=== PATIENT | female | born 1950 | race Caucasian/White ===

== ENCOUNTER 2018-02-21 10:15 | Emergency (ER) | payer BC ==
--- NOTE | 2018-02-21 11:09 | UC ---
Hand/Wrist HPI - HPI Summary HPI Summary: 67 yo female present with RIGHT wrist pain and LEFT big toe pain s/p fall yesterday. She tells me that yesterday she was walking her dog on an uneven ground with many twigs and branches - dog pulled and she fell onto her right side. Injured her right wrist and left big toe. No LOC and was ambulatory directly after fall. Has some bruising today. Says that she is here to make sure nothing is broken. Also complains of post nasal drip and yellow sinus drainage for the last month - she was treated with zpak with no improvement. Denies fever, chills, SOB, chest pain, numbness, or tingling. - History Of Current Complaint Stated Complaint: TOE,WRIST INJURY Time Seen by Provider: 02/21/18 11:09 Hx Obtained From: Patient Onset/Duration: Sudden Onset Severity Initially: Moderate Severity Currently: Mild Pain Intensity: 2 Pain Scale Used: 0-10 Numeric - Allergies/Home Medications Allergies/Adverse Reactions: Allergies Allergy/AdvReac Type Severity Reaction Status Date / Time Penicillins Allergy Rash And Verified 02/21/18 11:25 Itching Home Medications: Home Medications Allopurinol 100 mg 02/21/18 [History] Citalopram TAB* [Celexa TAB*] 20 mg 02/21/18 [History] Lisinopril 40 mg PO 02/21/18 [History] Simvastatin 20 mg PO 02/21/18 [History] amLODIPine TAB* [Norvasc 5 mg TAB*] 02/21/18 [History] PMH/Surg Hx/FS Hx/Imm Hx Endocrine History: Dyslipidemia Cardiovascular History: Hypertension Psychological History: Anxiety, Depression - Surgical History Surgical History: None - Family History Known Family History: Positive: Cardiac Disease, Hypertension - Social History Occupation: Retired Lives: With Family Alcohol Use: Occasionally Substance Use Type: None Smoking Status (MU): Never Smoked Tobacco Review of Systems Constitutional: Negative Skin: Bruising - Arms, wrists, and legs due to fall Respiratory: Negative Cardiovascular: Negative Neurovascular: Negative Musculoskeletal: Other: - Right wrist pain. Left toe pain Neurological: Negative Psychological: Negative All Other Systems Reviewed And Are Negative: Yes Physical Exam - Summary Physical Exam Summary: GENERAL: NAD. WDWN. No pain distress. SKIN: Diffuse 1.0cm-3.0cm patches of ecchymosis on arms and legs from fall. HEENT: Head: AT/NC Eyes: EOM intact. Conjunctiva clear without inflammation or discharge. Ears: Hearing grossly normal. TMs intact, no bulging, erythema, or edema. Nose: Nasal mucosa pink and moist. NTTP maxillary and frontal sinus. Throat: Posterior oropharynx without exudates, erythema, or tonsillar enlargement. Uvula midline. NECK: Supple. Nontender. No lymphadenopathy. CHEST: CTAB. No r/r/w. No accessory muscle use. Breathing comfortably and in no distress. CV: RRR. Without m/r/g. Pulses intact. Brisk cap refill. MSK: RIGHT wrist: NTTP. FROM and 5/5 strength throughout. No edema. Left great toe: FROM. Mild TTP at IP joint space. NEURO: Alert. CN II-XII grossly intact. PSYCH: Age appropriate behavior. Triage Information Reviewed: Yes Vital Signs: Vital Signs: Temp Pulse Resp BP Pulse Ox 98.3 F 85 16 144/80 98 02/21/18 11:17 02/21/18 11:17 02/21/18 11:17 02/21/18 11:17 02/21/18 11:17 Hand/Wrist Course/Dx - Course Course Of Treatment: XR wrist: IMPRESSION: 1. OSTEOPENIA. 2. OSTEOARTHRITIS. 3. NO ACUTE OSSEOUS INJURY. IF SYMPTOMS PERSIST, RECOMMEND REPEAT IMAGING. XR toe: IMPRESSION: 1. QUESTIONABLE NONDISPLACED FRACTURE OF THE HEAD OF THE PROXIMAL PHALANX OF THE FIRST. DIGIT. RECOMMEND CORRELATION WITH SITE OF PAIN. 2. OSTEOPENIA. 3. MILD OSTEOARTHRITIS. Pt declined raven taping or toe splint today. Advised to ambulate as tolerated and take tylenol prn pain. Regarding her sinus symptoms - will try OTC flonase and claritin. - Differential Dx/Diagnosis Provider Diagnoses: Right wrist pain. Left great toe pain Discharge - Sign-Out/Discharge Documenting (check all that apply): Discharge/Admit/Transfer - Discharge Plan Condition: Stable Disposition: HOME Patient Education Materials: Toe Fracture (ED), Contusion in Adults (ED) Referrals: Yolanda Bone MD [Primary Care Provider] - Additional Instructions: If you develop a fever, shortness of breath, chest pain, new or worsening symptoms - please call your PCP or go to the ED. Your blood pressure was high at todays visit. Please see your primary provider within 4 weeks for recheck and re-evaluation. 1) Rest, Ice, and elevate your foot/toe as much as possible 2) Activities as tolerated 3) May take over the counter tylenol as every 6-8 hours as needed for pain - Billing Disposition and Condition Condition: STABLE Disposition: Home
[2018-02-21 11:25] VITALS: BP 144/80
--- NOTE | 2018-02-21 12:28 | RAD ---
HISTORY: Pain. Fall yesterday COMPARISONS: None VIEWS: 3, Frontal, lateral, and oblique views of the right wrist FINDINGS: BONE DENSITY: There is diffuse osteopenia. BONES: There is no displaced fracture. JOINTS: There is advanced osteoarthritis of the first CMC joint. ALIGNMENT: There is no dislocation. SOFT TISSUES: Unremarkable. OTHER FINDINGS: None. IMPRESSION: 1. OSTEOPENIA. 2. OSTEOARTHRITIS. 3. NO ACUTE OSSEOUS INJURY. IF SYMPTOMS PERSIST, RECOMMEND REPEAT IMAGING.
--- NOTE | 2018-02-21 12:29 | RAD ---
HISTORY: Pain. Fall yesterday COMPARISONS: None VIEWS: 3, Frontal, lateral, and oblique views of the first digit of the left foot FINDINGS: BONE DENSITY: There is diffuse osteopenia. BONES: There is a questionable nondisplaced fracture of the head of the proximal phalanx of the first digit. JOINTS: There is mild osteoarthritis of the first MTP and interphalangeal joint. ALIGNMENT: There is no dislocation. SOFT TISSUES: Unremarkable. OTHER FINDINGS: None. IMPRESSION: 1. QUESTIONABLE NONDISPLACED FRACTURE OF THE HEAD OF THE PROXIMAL PHALANX OF THE FIRST DIGIT. RECOMMEND CORRELATION WITH SITE OF PAIN. 2. OSTEOPENIA. 3. MILD OSTEOARTHRITIS.
== END 2018-02-21 12:45 | disposition home or self-care (01) ==
LOC: UCEAST 10:15
DX: M25.531 Pain in right wrist (principal); M79.675 Pain in left toe(s); M85.872 Other specified disorders of bone density and structure, left ankle and foot; M19.072 Primary osteoarthritis, left ankle and foot; M85.831 Other specified disorders of bone density and structure, right forearm; M19.031 Primary osteoarthritis, right wrist; J34.89 Other specified disorders of nose and nasal sinuses; E78.5 Hyperlipidemia, unspecified; I10 Essential (primary) hypertension; F41.9 Anxiety disorder, unspecified; F32.9 Major depressive disorder, single episode, unspecified; Z88.0 Allergy status to penicillin; Z82.49 Family history of ischemic heart disease and other diseases of the circulatory system
CPT/HCPCS: 99201; G0463

== ENCOUNTER 2019-01-02 09:56 | Emergency (ER) | payer BC ==
[2019-01-02 10:52] VITALS: BP 170/88
--- NOTE | 2019-01-02 10:53 | UC ---
Respiratory Complaint HPI - HPI Summary HPI Summary: CHIEF COMPLAINT and HPI: This is a 68-year-old female who comes to the [facility] with a complaint of cough producing brown mucus and tender left maxillary sinus and nasal discharge. This condition began this condition began yesterday and has not improved. She denies fever. Pain is described as mild and going into her teeth on the left. Medications & Allergies Reviewed. Patient is on allopurinol as well as antihypertensive medication. Nurses Note Reviewed. " developed sinus/facial pain yesterday, and woke up with a wet, productive cough today. denies fever " Hypertension status reviewed. Visit History Reviewed. Chronic conditions and problem list reviewed. Information contributory to present complaint: none. - History of Current Complaint Stated Complaint: COUGHGING UP MUCUS Time Seen by Provider: 01/02/19 10:49 Hx Last Menstrual Period: menopause - Allergies/Home Medications Allergies/Adverse Reactions: Allergies Allergy/AdvReac Type Severity Reaction Status Date / Time bee venom protein (honey bee) Allergy Anaphylatic Verified 01/02/19 10:52 Shock Penicillins Allergy Rash And Verified 01/02/19 10:52 Itching Home Medications: Home Medications Fosinopril (NF) [Monopril (NF)] 40 mg PO DAILY 01/02/19 [History Confirmed 01/02] Naproxen Sodium [Aleve] 2 tab PO DAILY PRN 01/02/19 [History Confirmed 01/02/19] Rosuvastatin Calcium 20 mg PO DAILY 01/02/19 [History Confirmed 01/02/19] PMH/Surg Hx/FS Hx/Imm Hx - Additional Past Medical History Additional PMH: PAST MEDICAL HISTORY: gout, hypertension. FAMILY HISTORY: Positive history of: -HYPTERTENSION -CARDIOVASCULAR DISEASE -STROKE -Denies hypertension, heart disease, stroke, diabetes, cancer. SOCIAL HISTORY: Employment: retired teacher. Family Environment: self Habits: NON SMOKER. - Surgical History Surgical History: None Surgery Procedure, Year, and Place: hip replacement 2011 ? - Family History Known Family History: Positive: Cardiac Disease, Hypertension - Social History Alcohol Use: Occasionally Substance Use Type: None Smoking Status (MU): Never Smoked Tobacco Review of Systems All Other Systems Reviewed And Are Negative: Yes Constitutional: Positive: Negative. Negative: Fever Skin: Positive: Negative Eyes: Positive: Drainage - nose ENT: Positive: Sinus Pain/Tenderness - left Respiratory: Positive: Negative, Cough. Negative: Shortness Of Breath Cardiovascular: Positive: Negative. Negative: Palpitations Gastrointestinal: Positive: Negative. Negative: Abdominal Pain Is Patient Immunocompromised?: No Physical Exam - Summary Physical Exam Summary: Appearance: The patient is well-appearing, is in no pain or distress, and is well-nourished. Eyes: Conjunctiva are clear. Pupils are equal and reactive to light and accommodation. Extra ocular muscle movement is intact. ENT: The hearing is grossly normal, the pharynx is normal, and the TMs are normal. There is no muffled or hoarse voice. No stridor. Mild tenderness to palpation, left maxillary sinus. Neck: The neck is supple and there is no lymphadenopathy. Respiratory: The chest is nontender to palpation and without crepitus. The lungs are clear, there are normal breath sounds, and there is no respiratory distress. No wheezes, rales or rhonchi. Cardiovascular: Heart sounds reveal a regular rate and rhythm. There are no clicks, rubs or murmurs. There are no carotid bruits or thrills. Circulation is grossly intact. Abdomen: The abdomen is soft and nontender. There is no organomegaly. Bowel sounds are present and within normal limits. No point tenderness at McBurneys point. Musculoskeletal: Strength is intact. The patient moves all extremities. Neurological: The patient is alert. Motor and sensory are examination grossly intact. Speech is normal. Psychological: The patient displays age appropriate behavior Skin: Negative for rashes. Triage Information Reviewed: Yes Vital Signs Reviewed: Yes Respiratory Course/Dx - Course Course Of Treatment: MEDICAL DECISION MAKING & PLAN: This is a 68-year-old female who comes to the [facility] with a complaint of cough producing brown mucus and tender left maxillary sinus and nasal discharge. This condition began this condition began yesterday and has not improved. She denies fever. Pain is described as mild and going into her teeth on the left. Tender left maxillary sinus. My diagnosis is left sinus congestion, possible infection. Bronchitis, probably viral. In discussing her condition and treatment plan the patient requests an antibiotic. I encouraged her to take the antibiotic and try to deal with this condition. Through various symptomatic treatment. She voiced understanding and will try this. I will give her 5 days of doxycycline, BID. MEDICATIONS REVIEWED: Medications have been included in the original chart and reviewed. HYPERTENSION STATUS REVIEWED. CURRENT HTN TREATMENT: Elevated BP but has current hypertension diagnosis and treatment. Patient maintains compliance with medication. Referred to PCP to evaluate current medication. Patient voices understanding. - Differential Dx/Diagnosis Provider Diagnosis: Sinusitis Discharge - Sign-Out/Discharge Documenting (check all that apply): Patient Departure All imaging exams completed and their final reports reviewed: No Studies - Discharge Plan Condition: Stable Disposition: HOME Prescriptions: DOXYcycline CAP(*) [DOXYcycline 100MG CAP(*)] 100 mg PO BID #10 cap MDD 2 Patient Education Materials: Sinusitis (ED) Referrals: Yolanda Bone MD [Primary Care Provider] - Additional Instructions: WE DISCUSSED: PLEASE SEEK CARE AT THE EMERGENCY DEPARTMENT IF SYMPTOMS WORSEN OR IF NEW SYMPTOMS DEVELOP. FOLLOW UP WITH YOUR PRIMARY CARE PHYSICIAN IF CONDITION CONTINUES BEYOND 3 DAYS WITHOUT IMPROVEMENT. We are open from 7 a.m. to 10 p.m. Call us with any questions or concerns. YOUR DIAGNOSIS IS: Sinus congestion, possible infection; bronchitis, probably viral. YOUR PRESCRIPTION RECOMMENDATION IS: As we discussed, my recommendation is to hold off on any antibiotic. This is probably viral. However, if she should spike a temperature and the pain continues over the next 5 days, you can start the antibiotic. Take one pill twice a day for 5 days. Doxycyline. OTHER INSTRUCTIONS: Hypertension Discharge Instructions: Your blood pressure reading today was 1170/88, indicating HYPERTENSION. Follow- up with your primary care provider within 4 weeks for blood pressure check and appropriate recommendations and treatment, as needed. For pain: Ibuprofen (Motrin and other brand names) 400-600mg PLUS acetaminophen (Tylenol and other brand names) 500mg - 1000mg every 8 hours. Maximum is 3 doses a day. If this dosage is required for more than 5 days, you should re-check with your doctor. The combination of these two over-the- counter medications can be more effective than each one taken alone. Please check with the pharmacist if you have questions about your allergies to these medications. Any illness causing cough, congestion, sore throat or sinus discomfort can be helped by doing the following: STAND UNDER SHOWER STREAM TO LOOSEN SECRETIONS. STAY AWAY FROM ANY SMOKE OR IRRITANTS. WHAT ELSE CAN HELP RELIEVE YOUR SYMPTOMS: TRY TO CLEAR NOSE: AFRIN NASAL SPRAY: 2-3 SPRAYS PER NOSTRIL, TWICE A DAY FOR TWO DAYS ONLY. USEFUL WAYS TO FEEL BETTER WITHOUT MEDICATIONS: STAND UNDER SHOWER STREAM TO LOOSEN SECRETIONS. USE A VAPORIZOR. STAY AWAY FROM ANY SMOKE OR IRRITANTS. USE SALINE NASAL SPRAY TO KEEP FLOW OF MUCOUS FROM NOSTRILS AND SINUSES. CONSIDER USING NETI POT TO HELP WITH ALLERGIES AND CONGESTION IN THE NOSE. USE THIS THREE TIMES A WEEK. YOU CAN GET THIS AT [employer] IN [place] OR VARIOUS DRUGSTORES. DRINK LOTS OF WARM FLUIDS USEFUL HOME REMEDIES: WARM WATER GARGLES, WITH TSP OF SALT PER 8 OUNCES OF WATER, GARGLE FOR A FEW SECONDS AND SPIT OUT; GARGLE AND SPIT OUT; EVERY THREE HOURS. AND/OR: WARM WATER OR TEA, HONEY AND LEMON; 2-3 CUPS A DAY. FOR SORE THROAT: KEEP THROAT MOIST WITH LOZENGES; TEA AND HONEY. USE WARM WATER GARGLES 3-4 TIMES A DAY. FOLLOW UP: RE-CHECK IN 1O DAYS, NEEDED, IF YOU ARE NOT IMPROVING. RETURN HERE OR SEE YOUR PHYSICIAN. RE-CHECK SOONER IF INCREASED PAIN OR TEMPERATURE. - Billing Disposition and Condition Condition: STABLE Disposition: Home
== END 2019-01-02 11:25 | disposition home or self-care (01) ==
LOC: UCEAST 09:56
DX: J32.9 Chronic sinusitis, unspecified (principal); M10.9 Gout, unspecified; I10 Essential (primary) hypertension; Z96.649 Presence of unspecified artificial hip joint; Z88.0 Allergy status to penicillin; Z91.030 Bee allergy status
CPT/HCPCS: 99212; G0463

== ENCOUNTER 2019-01-19 09:19 | Day surgery (SDC) | payer BC ==
[~2019-01-19 09:19] MED LIST: Acetaminophen TAB* 325 MG PO PRN; Buffered Lidocaine 1% SYRIN* 1 ML/SYRINGE INTRADERM ONE; Cyclopentolate 1% OPTH.SOL* 2 ML BTL ONE; Ketorolac 0.5% OPHTH (NF) 0.5 % 5 ML BTL ONE; Lidocaine 1%* 5 ML VIAL ONE; Neomycin/Polymy/Dex OPHTH.OIN* 3.5 GM ONE; Phenylephrine OPHTH SOL 2.5%* 2 ML ONE; Tetracaine 0.5% OPTH.SOL 4 ML* 1 DROP BTL ONE; Tropicamide 1% OPTH.SOL* BTL ONE
[2019-01-19] MEDS ORDERED: Midazolam* 1 MG/ML 2 ML VIAL (2 MG) ONE (09:55)
[2019-01-19] MEDS ORDERED: fentaNYL* 50 MCG/ML 2 ML VIAL (100 MCG VIAL) ONE (09:55)
[2019-01-19 11:14] VITALS: BP 146/68
--- NOTE | 2019-01-19 12:12 | OP ---
DATE OF OPERATION: 01/19/19 [facility] DATE OF : 48 SURGEON: Cullen Zheng MD GRINDER OUTSIDE DIAMETER: None. ANESTHESIA: Topical with intravenous sedation. PRE-OP DIAGNOSIS: Cataract with astigmatism, left eye. POST-OP DIAGNOSIS: Cataract with astigmatism, left eye. OPERATIVE PROCEDURE: Phacoemulsification and cataract extraction with posterior chamber intraocular toric lens implant, left eye. COMPLICATIONS: None. ESTIMATED BLOOD LOSS: None. DESCRIPTION OF PROCEDURE: The patient was seen preoperatively in the holding area where a gio was made at the 6 o'clock position at the limbus of the left eye while the patient was sitting upright. The patient was subsequently brought into the operating room and given intravenous sedation. A drop of tetracaine was placed into her left eye. The patient was prepped and draped in the usual sterile fashion for ophthalmic surgery and attention was directed to the left eye where a speculum was placed. A paracentesis was created at the 5 o 'clock position and 0.1 cc of 1 percent preservative-free Lidocaine was injected into the anterior chamber followed by DisCoVisc. The eye digitally stabilized while a 2.75 mm keratome was used to create a triplanar clear corneal incision at the 3 o'clock position. A continuous curvilinear capsulorrhexis was created with a cystotome and Utrata forceps. BSS on a cannula was used to hydro-dissect the lens from the capsule. Phacoemulsification was performed in a lyonoy-lpb-uvyzmli technique to create four fragments which were removed. Residual cortical material was removed with irrigation and aspiration. The eye was inflated with Provisc. The intraocular pressure was measured with a tonometer. The surface of the eye was lubricated. The ORA instrument was employed. A lens was chosen based on the guidelines of the ORA. An [id number], 19 diopter lens was folded and inserted into the capsular bag. The ORA reticle guided the axial alignment of the eye to 95 degrees. Irrigation and aspiration were performed to remove Viscoelastic from the eye. The lens remained stable at the proper axial alignment. BSS on a cannula was used to hydrate the corneal stoma and seal the wound. At the end of the case the pupil was round, the lens was centered stable in axial line. The eye pressure appeared normal and the wound was water tight. The speculum was removed and topical Maxitrol ointment was placed on the surface of the eye. The eye was closed, patched, and shielded and the patient was sent to the recovery room in stable condition with postoperative instructions and a followup appointment given. [id number]/[facility] #: [id number] JOSSELIN
== END 2019-01-19 11:21 | disposition home or self-care (01) ==
LOC: OREAST 09:19
PROVIDERS: ATTEND Ophthalmology
DX: H25.042 Posterior subcapsular polar age-related cataract, left eye (principal); H52.202 Unspecified astigmatism, left eye; I10 Essential (primary) hypertension; E78.00 Pure hypercholesterolemia, unspecified; R01.1 Cardiac murmur, unspecified; Z87.891 Personal history of nicotine dependence; M19.90 Unspecified osteoarthritis, unspecified site; Z68.33 Body mass index [BMI] 33.0-33.9, adult
CPT/HCPCS: A9270-GY; J2250; J3010; V2787

== ENCOUNTER 2019-01-26 09:55 | Day surgery (SDC) | payer BC ==
[~2019-01-26 09:55] MED LIST changes: -Cyclopentolate 1% OPTH.SOL* 2 ML BTL ONE; -Ketorolac 0.5% OPHTH (NF) 0.5 % 5 ML BTL ONE; -Lidocaine 1%* 5 ML VIAL ONE; -Neomycin/Polymy/Dex OPHTH.OIN* 3.5 GM ONE; -Phenylephrine OPHTH SOL 2.5%* 2 ML ONE; -Tetracaine 0.5% OPTH.SOL 4 ML* 1 DROP BTL ONE; -Tropicamide 1% OPTH.SOL* BTL ONE
[2019-01-26] MEDS ORDERED: Ketorolac 0.5% OPHTH (NF) 0.5 % 5 ML BTL ONE (10:18)
[2019-01-26] MEDS ORDERED: Lidocaine 1%* 5 ML VIAL ONE (10:18)
[2019-01-26] MEDS ORDERED: Tetracaine 0.5% OPTH.SOL 4 ML* 1 DROP BTL ONE (10:18)
[2019-01-26] MEDS ORDERED: Trypan Blue 0.06% SOL* 0.5 ML BTL ONE (10:18)
[2019-01-26] MEDS ORDERED: Neomycin/Polymy/Dex OPHTH.OIN* 3.5 GM ONE (10:18)
[2019-01-26] MEDS ORDERED: Phenylephrine OPHTH SOL 2.5%* 2 ML ONE (10:18)
[2019-01-26] MEDS ORDERED: Phenylephr/Ketorolac 1%/0.3% OPH DROP BTL ONE (10:18)
[2019-01-26] MEDS ORDERED: Tropicamide 1% OPTH.SOL* BTL ONE (10:18)
[2019-01-26] MEDS ORDERED: Cyclopentolate 1% OPTH.SOL* 2 ML BTL ONE (10:18)
[2019-01-26] MEDS ORDERED: fentaNYL* 50 MCG/ML 2 ML VIAL (100 MCG VIAL) ONE (10:30)
[2019-01-26] MEDS ORDERED: Midazolam* 1 MG/ML 5 ML VIAL (5 MG) ONE (10:31)
[2019-01-26 11:35] VITALS: BP 157/63
--- NOTE | 2019-01-26 12:17 | OP ---
DATE OF OPERATION: 01/26/19 [facility] DATE OF : 48 SURGEON: Cullen Zheng MD. CAMPUS CHAPLAIN: None. ANESTHESIA: Topical with intravenous sedation. PRE-OP DIAGNOSIS: Cataract and pseudoexfoliation material, right eye. POST-OP DIAGNOSIS: Cataract and pseudoexfoliation material, right eye. OPERATIVE PROCEDURE: Phacoemulsification and cataract extraction with posterior chamber intraocular lens implant, right eye. COMPLICATIONS: None. BLOOD LOSS: None. DESCRIPTION OF PROCEDURE: The patient was brought to the operating room and received a small amount of intravenous sedation. A drop of Tetracaine was placed in her right eye. The patient was prepped and draped in the usual sterile fashion for ophthalmic surgery and attention was directed to the right eye where a speculum was placed. A paracentesis was created at the 11 o'clock position and 0.1 cc of 1 percent preservative-free Lidocaine was injected into the anterior chamber followed by DisCoVisc. The eye was digitally stabilized while a 2.75 mm keratome was used to create a triplanar clear corneal incision at the 9 o'clock position. A continuous curvilinear capsulorrhexis was created with a cystotome and Utrata forceps. BSS on a cannula was used to gently hydrodissect the lens from the capsule. Omidria was added to the irrigating solution. Phacoemulsification was performed in a xngfed-rgf-eoytsst technique to create four fragments which were removed. Residual cortical material was removed with irrigation and aspiration. The capsular bag was gently polished. DisCoVisc was used to inflate the capsular bag. An [id number] 18.5 diopter lens was inserted into the capsular bag. DisCoVisc was removed using irrigation and aspiration. BSS on a cannula was used to hydrate the corneal stroma and seal the wound. At the end of the case, the lens was centered and stable. The capsule was secure and intact. The eye pressure appeared normal and the wound was water tight. The speculum was removed. Topical Maxitrol ointment was placed on the surface of the eye. The eye was closed, patched and shielded and the patient was sent to the recovery room in stable condition with postoperative instructions and follow-up appointment given. [id number]/[facility] #: [id number] [facility]ITALIván
== END 2019-01-26 11:40 | disposition home or self-care (01) ==
LOC: OREAST 09:55
PROVIDERS: ATTEND Ophthalmology
DX: H25.11 Age-related nuclear cataract, right eye (principal); R01.1 Cardiac murmur, unspecified; I10 Essential (primary) hypertension; E78.00 Pure hypercholesterolemia, unspecified; Z87.891 Personal history of nicotine dependence
CPT/HCPCS: A9270-GY; C9447; J2250; J3010; V2632

== ENCOUNTER 2019-09-03 09:42 | Emergency (ER) | payer BC, MEDICARE ==
--- OUTSIDE RECORDS SUMMARY | 2019-09-03 09:51 | XMS REPORT | Continuity of Care Document ---
:1950 External Reference #:[id number] Author Name Jules Turner, OD Address [address] [place] [address] Care Team Providers Name Role Phone Yolanda Bone MD Care Team Information Solutions Consultant [phone] [facility] [place] Care Team Information Solutions Consultant Problems Description No Information Available Social History Type Date Description Comments Sex Unknown ETOH Use Rarely consumes alcohol Tobacco Use Start: Unknown End: Patient is a former smoker Quit 15 years ago Unknown Smoking Status Reviewed: 08/03/19 Patient is a former smoker Quit 15 years ago Allergies, Adverse Reactions, Alerts Active Allergies Reaction Severity Comments Date Penicillins 11/19/2018 Bee Stings 12/21/2018 Medications Active Medications SIG Qnty Indications Ordering Provider Date Amlodipine Besylate Yolanda Bone, 5mg Tablets Fosinopril Sodium Yolanda Bone, 40mg Tablets Allopurinol Yolanda Bone, 100mg Tablets Rosuvastatin Calcium Yolanda Bone, 20mg Tablets Citalopram Hydrobromide Yolanda Bone, 20mg Tablets Immunizations Description No Information Available Vital Signs Date Vital Result Comment 08/03/2019 10:07am Intraocular Pressure Right Eye 18 mmHg Intraocular Pressure Left Eye 18 mmHg 03/05/2019 9:34am Intraocular Pressure Right Eye 18 mmHg Intraocular Pressure Left Eye 18 mmHg Results Description No Information Available Procedures Date Code Description Status 08/03/2019 12300 Oct, Optic Nerve Completed 08/03/2019 49912 Visual Field Exam Extended, Unilateral Or Bilateral Completed 08/03/2019 88421 Eye Exam Est Intermediate Completed Medical Devices Description No Information Available Encounters Description No Information Available Assessments Date Code Description Provider 08/03/2019 H40.013 Open angle with borderline findings, low risk, Jules Turner, OD bilateral 03/05/2019 Z96.1 Presence of intraocular lens Jules Turner, OD 03/05/2019 H40.013 Open angle with borderline findings, low risk, Jules Turner, OD bilateral 02/03/2019 Z96.1 Presence of intraocular lens Jules Turner, OD 02/03/2019 H40.013 Open angle with borderline findings, low risk, Jules Turner, OD bilateral Plan of Treatment Future Appointment(s):12/02/2019 10:00 am - Jules Turner, OD at [id number] - Jules Turner, ODH40.013 Open angle with borderline findings, low risk , bilateralFollow up:4 mos full, sooner PRN Functional Status Description No Information Available Mental Status Description No Information Available Referrals Description No Information Available
[2019-09-03 09:55] VITALS: BP 153/86
--- NOTE | 2019-09-03 10:02 | UC ---
Dental HPI - HPI Summary HPI Summary: 69 yo female presents with dental pain. She tells me that over the last 2 weeks she has been having sinus pain/pressure/congestion for which she has been taking OTC cold medicine with mild relief. Feels as though this is improving. Over the last 2-3 days has noticed left lower tooth/gum pain and swelling. She has broken teeth here that get infected from time to time. She is scheduled to have these removed in september. Denies fever, sore through, cough, rash. - History of Current Complaint Chief Complaint: UCDentalProblem Stated Complaint: DENTAL PAIN Time Seen by Provider: 09/03/19 10:01 Hx Obtained From: Patient Hx Last Menstrual Period: menopause Onset/Duration: Gradual Onset Severity: Moderate Pain Intensity: 5 Pain Scale Used: 0-10 Numeric - Allergies/Home Medications Allergies/Adverse Reactions: Allergies Allergy/AdvReac Type Severity Reaction Status Date / Time bee venom protein (honey bee) Allergy Severe Anaphylatic Verified 09/03/19 09:55 Shock Penicillins Allergy Severe Rash And Verified 09/03/19 09:55 Itching PMH/Surg Hx/FS Hx/Imm Hx Endocrine History: Dyslipidemia Cardiovascular History: Hypertension Psychological History: Anxiety, Depression - Surgical History Surgical History: Yes Surgery Procedure, Year, and Place: hip replacement 2011 ? inciional hernia repair. partial hysterectomy 1989 - Family History Known Family History: Positive: Cardiac Disease, Hypertension - Social History Lives: With Family Alcohol Use: Occasionally Substance Use Type: None Smoking Status (MU): Former Smoker Amount Used/How Often: 2001 Review of Systems All Other Systems Reviewed And Are Negative: No Constitutional: Positive: Negative Skin: Positive: Negative Eyes: Positive: Negative ENT: Positive: Dental Pain, Nasal Discharge, Sinus Congestion, Sinus Pain/ Tenderness Respiratory: Positive: Negative Cardiovascular: Positive: Negative Gastrointestinal: Positive: Negative Neurological: Positive: Negative Psychological: Positive: Negative Physical Exam - Summary Physical Exam Summary: GENERAL: NAD. WDWN. No pain distress. SKIN: No rashes, sores, lesions, or open wounds. HEENT: Head: AT/NC Eyes: EOM intact. Conjunctiva clear without inflammation or discharge. Ears: Hearing grossly normal. TMs intact, no bulging, erythema, or edema. Nose: Nasal mucosa pink and moist. Mild TTP maxillary sinus. Throat: Posterior oropharynx without exudates, erythema, or tonsillar enlargement. Uvula midline. NECK: Supple. Nontender. No lymphadenopathy. CHEST: CTAB. No accessory muscle use. Breathing comfortably and in no distress. CV: RRR. Pulses intact. Cap refill <2seconds NEURO: Alert. PSYCH: Age appropriate behavior. Triage Information Reviewed: Yes Vital Signs: Initial Vital Signs Temp 96 F 09/03/19 09:53 Pulse 97 09/03/19 09:53 Resp 16 09/03/19 09:53 BP 153/86 09/03/19 09:53 Pulse Ox 100 09/03/19 09:53 Vital Signs Reviewed: Yes Dental: Positive: Percussion Tenderness @ - Tooth #20 and #19, Dental Fracture @ - Tooth #20 and #19, Cellulitis @ - Tooth #20 and #19. Negative: Abscess @, Cervical Lymphadenopathy, Bleeding Dental Complaint Course/Dx - Course Course Of Treatment: Dental early abscess Tooth #20 and #19 - Differential Dx/Diagnosis Provider Diagnosis: Dental abscess Discharge ED - Sign-Out/Discharge Documenting (check all that apply): Patient Departure All imaging exams completed and their final reports reviewed: No Studies - Discharge Plan Condition: Stable Disposition: HOME Prescriptions: Clindamycin HCl 300 mg PO TID #21 capsule Patient Education Materials: Dental Abscess (ED) Referrals: Yolanda Bone MD [Primary Care Provider] - Additional Instructions: If you develop a fever, shortness of breath, chest pain, new or worsening symptoms - please call your PCP or go to the ED immediately. Your blood pressure was high at todays visit. Please see your primary provider within 4 weeks for recheck and re-evaluation. - Billing Disposition and Condition Condition: STABLE Disposition: Home
== END 2019-09-03 10:39 | disposition home or self-care (01) ==
LOC: UCEAST 09:42
DX: K04.7 Periapical abscess without sinus (principal); I10 Essential (primary) hypertension; Z82.49 Family history of ischemic heart disease and other diseases of the circulatory system; Z91.030 Bee allergy status; Z87.891 Personal history of nicotine dependence; Z88.0 Allergy status to penicillin
CPT/HCPCS: 99212; G0463